=== PATIENT | male | born 1970 | race Caucasian/White ===

== ENCOUNTER 2023-09-27 19:46 | Inpatient (IN) ==
[2023-09-27] MEDS: EPINEPHrine 1 MG/ML VIAL IM ONE (19:58)
[2023-09-27] MEDS: diphenhydrAMINE 50 MG/ML VIAL IV ONE (20:08)
[2023-09-27] MEDS: methylPREDNISolone SOD SUCC 125 MG/2 ML VIAL IV ONE (20:08)
[2023-09-27] MEDS: ETOMIDATE 20 MG/10 ML VIAL IV ONE (20:18)
[2023-09-27] MEDS: SUCCINYLCHOLINE 200 MG/10 ML VIAL IV ONE ×4 (20:18→21:23)
[2023-09-27] MEDS: MIDAZOLAM 5 MG/5 ML VIAL IV ONE ×3 (20:22→20:32)
[2023-09-27 20:23] LABS: Basophils # (Auto) 0 K/mcL (0.00-0.30); Basophils % (Auto) 0 % (0.0-2.0); Eosinophils # (Auto) 0.21 K/mcL (0.00-0.70); Eosinophils % (Auto) 2.5 % (0.0-7.0); Hematocrit 44.9 % (40.1-51.0); Hemoglobin 15.7 g/dL (13.7-17.5); Lymphocytes # (Auto) 3.52 K/mcL (1.50-4.80); Lymphocytes % (Auto) 41.1 % (15.5-49.0); Mean Cell Volume 87.5 fL (80.0-100.0); Mean Platelet Volume 9.3 fL (8.8-12.5); Monocytes # (Auto) 0.68 K/mcL (0.10-0.90); Monocytes % (Auto) 7.9 % (1.0-12.0); Neutrophils % (Auto) 47.8 % (38.0-78.0); Platelet Count 222 K/mcL (140-440); RBC 5.13 M/mcL (4.63-6.08); Red Cell Distribution Width 11.7 % (11.5-14.5); WBC 8.6 K/mcL (4.5-11.0)
[2023-09-27] MEDS: FAMOTIDINE/PF 20 MG/2 ML VIAL IV ONE ×2 (20:23→21:23)
[2023-09-27] MEDS: fentaNYL 100 MCG/2 ML VIAL IV ONE (20:37)
[2023-09-27 20:38] LABS: Blood Urea Nitrogen 27 mg/dL (6-20); Carbon Dioxide 24 mmol/L (22-30); Chloride 103 mmol/L (96-108); Glomerular Filtration Rate 61; Glucose 206 mg/dL (70-105); Potassium 3.9 mmol/L (3.3-5.1); Sodium 141 mmol/L (133-145)
[2023-09-27] MEDS: PROPOFOL 1,000 MG in PREMIX 1 BAG IV SCH (20:38)
[2023-09-27] MEDS: fentaNYL 100 MCG/2 ML VIAL ONE (21:00)
[2023-09-27] MEDS: MIDAZOLAM 5 MG/5 ML VIAL ONE ×2 (21:23→21:24)
[2023-09-27] MEDS: fentaNYL 50 ML ONE (22:52)
[2023-09-27] MEDS: 0.9 % SODIUM CHLORIDE 0 ML ONE (22:52)
[2023-09-27] MEDS: PROPOFOL 1,000 MG in PREMIX 1 BAG IV ONE (22:58)
[2023-09-27] MEDS: fentaNYL 2,500 MCG in 0.9 % SODIUM CHLORIDE 200 ML IV SCH (22:58)
[2023-09-27] MEDS: 0.9 % SODIUM CHLORIDE 1,000 ML IV SCH (23:02)
[2023-09-27] MEDS ORDERED: ONDANSETRON 4 MG/2 ML VIAL IV PRN (23:13)
[2023-09-27] MEDS ORDERED: IPRATROPIUM/ALBUTEROL 3 ML AMPUL.NEB NEB PRN (23:13)
[2023-09-27] MEDS ORDERED: ACETAMINOPHEN 650 MG/65 ML BAG IV PRN (23:13)
[2023-09-28] MEDS: methylPREDNISolone SOD SUCC 125 MG/2 ML VIAL IV SCH (00:45)
[2023-09-28] MEDS: 0.9 % SODIUM CHLORIDE 10 ML SYRINGE IV SCH (00:46)
[2023-09-28] MEDS: methylPREDNISolone SOD SUCC 125 MG/2 ML VIAL ONE ×2 (01:13→05:57)
[2023-09-28] MEDS: PROPOFOL 1,000 MG in PREMIX 1 BAG IV ONE (02:24)
[2023-09-28] MEDS: PROPOFOL 100 ML IV ONE (03:32)
[2023-09-28] MEDS: diphenhydrAMINE 50 MG/ML VIAL IV SCH (05:27)
[2023-09-28] MEDS: diphenhydrAMINE 50 MG/ML VIAL ONE (05:57)
[2023-09-28 06:35] LABS: Basophils # (Auto) 0 K/mcL (0.00-0.30); Basophils % (Auto) 0 % (0.0-2.0); Eosinophils # (Auto) 0 K/mcL (0.00-0.70); Eosinophils % (Auto) 0 % (0.0-7.0); Hematocrit 42.1 % (40.1-51.0); Hemoglobin 14.1 g/dL (13.7-17.5); Lymphocytes # (Auto) 0.93 K/mcL (1.50-4.80); Lymphocytes % (Auto) 7.5 % (15.5-49.0); Mean Cell Volume 90.5 fL (80.0-100.0); Mean Corpuscular HGB Conc 33.5 g/dL (31.0-36.0); Mean Platelet Volume 9.4 fL (8.8-12.5); Monocytes % (Auto) 0.8 % (1.0-12.0); Neutrophils % (Auto) 91.4 % (38.0-78.0); Platelet Count 194 K/mcL (140-440); RBC 4.65 M/mcL (4.63-6.08); Red Cell Distribution Width 11.7 % (11.5-14.5); WBC 12.4 K/mcL (4.5-11.0)
[2023-09-28 06:44] LABS: Phosphorous 3.5 mg/dL (2.5-4.5)
[2023-09-28 06:53] LABS: ALT/SGPT 35 U/L (<40); AST/SGOT 25 U/L (<40); Albumin 4.4 gm/dL (3.2-5.2); Alkaline Phosphatase 56 U/L (39-117); Bilirubin,Total 0.3 mg/dL (0.1-1.0); Blood Urea Nitrogen 29 mg/dL (6-20); Carbon Dioxide 22 mmol/L (22-30); Chloride 104 mmol/L (96-108); Globulin 2.2 gm/dL (2.2-3.7); Glomerular Filtration Rate 95; Glucose 254 mg/dL (70-105); Potassium 4.7 mmol/L (3.3-5.1); Sodium 138 mmol/L (133-145)
[2023-09-28] MEDS: RACEPINEPHRINE 0.5 ML AMPUL.NEB ONE (08:25)
[2023-09-28] MEDS: PANTOPRAZOLE 40 MG VIAL IV SCH (08:46)
[2023-09-28] MEDS: ENOXAPARIN 40 MG/0.4 ML SYRINGE SQ SCH (08:46)
== END 2023-09-28 13:45 | disposition home or self-care (01) | DRG 918 ==
LOC: ED 19:46 → ICU 22:55
PROVIDERS: ADMIT Internal Medicine; ATTEND Internal Medicine